=== PATIENT | female | born 1945 | race African-American/Black ===

== ENCOUNTER 2021-03-31 09:38 | Emergency (ER) | payer MEDICAID, OTHER, SELFPAY ==
[2021-03-31 11:30] VITALS: BP 153/69; PULSE 78; RESP 18; TEMP 36.8; O2SAT 96; BMI 26.9
[2021-03-31 12:11] LABS: MANUAL DIFF FLAG NO
[2021-03-31 12:16] LABS: Basophils Absolute Auto 0.1 X10*3/uL (0.0-0.2); Basophils Percent Auto 1.1 % (0-2); Eosinophils Percent Auto 0.2 % (0-4); Hematocrit 40.6 % (37.0-47.0); Hemoglobin 14.4 g/dl (12.0-16.0); Imm Gran Abs Auto 0.03 X10*3/uL (0.00-0.03); Imm Gran Pct Auto 0.3 % (0.0-0.4); Lymphocytes Absolute Auto 3.6 X10*3/uL (1.2-4.9); Lymphocytes Percent Auto 38.6 % (20-40); Mean Corpuscular HGB Conc 35.5 g/dl (31.0-35.0); Mean Corpuscular Hemoglobin 29.6 pg (27.0-33.0); Mean Corpuscular Volume 83.5 fL (80.0-98.0); Mean Platelet Volume 11.6 fL (9.4-12.3); Monocytes Absolute Auto 0.7 X10*3/uL (0.1-1.2); Monocytes Percent Auto 6.9 % (2-11); Neutrophils Percent Auto 52.9 % (45-73); Platelet Count 289 X10*3/uL (160-400); Red Blood Count 4.86 X10*6/uL (4.20-5.50); Red Cell Distribution Width 11.2 % (11.0-16.0); White Blood Count 9.4 X10*3/uL (4.8-10.8)
[2021-03-31 12:37] LABS: Anion Gap 21 (12-20); Blood Urea Nitrogen 26 mg/dL (9-16); Calcium 10.1 mg/dL (8.4-10.2); Carbon Dioxide 26 mmol/L (22-29); Chloride 86 mmol/L (96-108); Estimated Glomerular Filt Rate 39; Glucose Random 487 mg/dL (60-115); Potassium 4.1 mmol/L (3.3-5.1); Sodium 129 mmol/L (135-145)
[2021-03-31 19:38] LABS: Glucose, Whole Blood 362 mg/dL (60-115)
--- NOTE | 2021-03-31 19:41 | ED.GENADULT ---
HPI - General Adult General Chief complaint: General Medical Stated complaint: high BP & blood sugar, mouth & vaginal yeast Time Seen by Provider: 03/31/21 19:41 Source: family Mode of arrival: ambulatory Limitations: no limitations History of Present Illness HPI narrative: patient with weight loss, increased thirst and weakness for 1 week. Patient has been losing weight for 2 weeks. Sores in her mouth. Onset (ago): week(s) Severity: moderate Pain Consistency: constant Associated symptoms: loss of appetite, malaise and other (headache) Related Data Previous Rx's Medication Instructions Recorded metformin 1,000 mg tablet 500 mg PO BID #60 tab 03/31/21 Allergies Allergy/AdvReac Type Severity Reaction Status Date / Time No Known Allergies Allergy Verified 03/31/21 11:30 Review of Systems Constitutional: Constitutional: Reports no additional constitutional complaints Eyes: Eyes: Reports no additional eye complaints ENT: Denies dizziness Cardiovascular: Cardiovascular: Reports no additional cardiovascular complaints Respiratory: Respiratory: Reports as per HPI Gastrointestinal: Gastrointestinal: Reports no additional gastrointestinal complaints Genitourinary: Genitourinary: Reports no additional female genitourinary complaints Musculoskeletal: Musculoskeletal: Reports no additional musculoskeletal complaints Integumentary/Breasts: Skin/Breast: Denies rash Neurologic: Reports system reviewed and no additional complaints, except as documented, Denies dizziness and Denies Sensory deficit (Neuro) Psychiatric: Psychiatric: Denies anxiety PMFSH Past Medical History Medical History GERD (gastroesophageal reflux disease) High blood sugar Hypertension Social History Social History Advance Directives: No Advance Directives Information Provided: Yes Physical Exam Vital Signs: Vital Signs: Last Vital Signs Temp 98.2 F 03/31/21 11:30 Pulse 78 03/31/21 11:30 Resp 18 03/31/21 11:30 BP 153/69 H 03/31/21 11:30 Pulse Ox 96 03/31/21 11:30 BMI result Body Mass Index 26.9 Const: General: healthy appearing Nutritional Appearance: average body habitus Orientation/consciousness: oriented to person and patient oriented x3 Limitations: no limitations HENMT: Head: Yes normal to inspection Ears: external ears normal General nose exam: Normal external nose present Mouth: Normal oral and palatal mucosa present and oropharynx normal Throat: Yes posterior oropharynx normal Eyes: General: appearance normal, both eyes and all related structures Neck: Other: supple Neck: Yes normal visual inspection Chest: Chest palpation & inspection: normal inspection of the chest Resp: Auscultation: clear to auscultation bilaterally Cardio: Jugular venous distension: no JVD Rate: regular rate Rhythm: regular rhythm Heart sounds: S1 normal heart sound present and S2 normal heart sound present GI: Inspection: Yes normal to inspection Palpation (GI): Soft to palpation, nontender and No hepatosplenomegaly present Auscultation: normal bowel sounds : General: Yes no CVA tenderness Back/Spine/Pelvis: Back: no CVA tenderness Skin: General skin exam: no rashes or lesions noted Neuro: General: oriented to person and patient oriented x3 Cranial nerves: Yes CN's II-XII intact bilaterally Motor exam (neuro): 5/5 motor strength present throughout Sensory Exam: No Sensory deficit (Neuro) Extrem: General: Yes normal to inspection Psych: Appearance: grossly normal Course Reevaluation(s) Reevaluation #1: Patient just started hydration and insulin will sign out to Dr. Lovell to check UA and glucose Time: 21:11 Medical Decision Making Lab Data Result diagrams: 03/31/21 12:06 03/31/21 12:06 Labs: Lab Results 03/31/21 03/31/21 03/31/21 Range/Units 12:06 12:06 14:26 WBC 9.4 (4.8-10.8) X10*3/uL RBC 4.86 (4.20-5.50) X10*6/uL Hgb 14.4 (12.0-16.0) g/dl Hct 40.6 (37.0-47.0) % MCV 83.5 (80.0-98.0) fL MCH 29.6 (27.0-33.0) pg MCHC 35.5 H (31.0-35.0) g/dl RDW 11.2 (11.0-16.0) % Plt Count 289 (160-400) X10*3/uL MPV 11.6 (9.4-12.3) fL Immature Gran % (Auto) 0.3 (0.0-0.4) % Neut % (Auto) 52.9 (45-73) % Lymph % (Auto) 38.6 (20-40) % [place] % (Auto) 6.9 (2-11) % Eos % (Auto) 0.2 (0-4) % Baso % (Auto) 1.1 (0-2) % Lymph # (Auto) 3.6 (1.2-4.9) X10*3/uL [place] # (Auto) 0.7 (0.1-1.2) X10*3/uL Eos # (Auto) 0.0 (0.0-0.4) X10*3/uL Baso # (Auto) 0.1 (0.0-0.2) X10*3/uL Abs Immat Gran (auto) 0.03 (0.00-0.03) X10*3/uL Absolute Neuts (auto) 5.0 (2.0-8.3) x10*3/uL Absolute Nucleated RBC 0.000 (0.0-0.012) X10*3/uL Nucleated RBC % (auto) 0.0 (0.0-0.2) /100WBC Sodium 129 L (135-145) mmol/L Potassium 4.1 (3.3-5.1) mmol/L Chloride 86 L (96-108) mmol/L Carbon Dioxide 26 (22-29) mmol/L Anion Gap 21 H (12-20) BUN 26 H (9-16) mg/dL Creatinine 1.32 (0.5-1.4) mg/dL Estim Creat Clear Calc 39.0 Estimated GFR 39 POC Glucose 362 H* (60-115) mg/dL Random Glucose 487 H* (60-115) mg/dL Calcium 10.1 (8.4-10.2) mg/dL Urine Color Urine Appearance Urine pH (5.0-8.0) Ur Specific [place] (1.005-1.025) Urine Protein (NEG-TRACE) MG/DL Urine Glucose (UA) (NEG) MG/DL Urine Ketones (NEG) MG/DL Urine Blood (NEG) Urine Nitrite (NEG) Ur Leukocyte Esterase (NEG) Urine RBC (0) /HPF Urine WBC (0-4) /HPF Ur Squamous Epith Cells /LPF Urine Bacteria /LPF 12/13/21 12/13/21 Range/Units 20:46 20:52 WBC (4.8-10.8) X10*3/uL RBC (4.20-5.50) X10*6/uL Hgb (12.0-16.0) g/dl Hct (37.0-47.0) % MCV (80.0-98.0) fL MCH (27.0-33.0) pg MCHC (31.0-35.0) g/dl RDW (11.0-16.0) % Plt Count (160-400) X10*3/uL MPV (9.4-12.3) fL Immature Gran % (Auto) (0.0-0.4) % Neut % (Auto) (45-73) % Lymph % (Auto) (20-40) % [place] % (Auto) (2-11) % Eos % (Auto) (0-4) % Baso % (Auto) (0-2) % Lymph # (Auto) (1.2-4.9) X10*3/uL [place] # (Auto) (0.1-1.2) X10*3/uL Eos # (Auto) (0.0-0.4) X10*3/uL Baso # (Auto) (0.0-0.2) X10*3/uL Abs Immat Gran (auto) (0.00-0.03) X10*3/uL Absolute Neuts (auto) (2.0-8.3) x10*3/uL Absolute Nucleated RBC (0.0-0.012) X10*3/uL Nucleated RBC % (auto) (0.0-0.2) /100WBC Sodium (135-145) mmol/L Potassium (3.3-5.1) mmol/L Chloride (96-108) mmol/L Carbon Dioxide (22-29) mmol/L Anion Gap (12-20) BUN (9-16) mg/dL Creatinine (0.5-1.4) mg/dL Estim Creat Clear Calc Estimated GFR POC Glucose 460 H* (60-115) mg/dL Random Glucose (60-115) mg/dL Calcium (8.4-10.2) mg/dL Urine Color YELLOW Urine Appearance CLEAR Urine pH 5.5 (5.0-8.0) Ur Specific [place] <= 1.005 (1.005-1.025) Urine Protein NEG (NEG-TRACE) MG/DL Urine Glucose (UA) >=1000 H (NEG) MG/DL Urine Ketones 40 (NEG) MG/DL Urine Blood TRACE (NEG) Urine Nitrite NEG (NEG) Ur Leukocyte Esterase NEG (NEG) Urine RBC 1-4 (0) /HPF Urine WBC 0-2 (0-4) /HPF Ur Squamous Epith Cells 1+ /LPF Urine Bacteria 1+ /LPF Discharge Plan Discharge Clinical Impression: Diabetes, Hyperglycemia Patient Disposition: Still a Patient Instructions: Type 2 Diabetes in Adults: New Diagnosis (ED), Diabetic Hyperglycemia (ED) Prescriptions: New metformin 1,000 mg tablet 500 mg PO BID Qty: 60 RF: 0 Referrals: Christal Vazquez FNP-C [Primary Care Provider] - 1 week
[2021-03-31 20:50] LABS: Glucose, Whole Blood 460 mg/dL (60-115)
[2021-03-31 21:04] LABS: Appearance Urine CLEAR; Color Urine YELLOW; Glucose Urine UA >=1000 MG/DL (NEG); Leukocyte Esterase Urine NEG (NEG); Nitrite Urine NEG (NEG); PH 5.5 (5.0-8.0); Specific Gravity - Urine <= 1.005 (1.005-1.025); UACC Culture Trigger NO; Urine Blood TRACE (NEG); Urine Ketones 40 MG/DL (NEG); Urine Protein NEG (NEG-TRACE)
[2021-03-31 21:14] LABS: WBC Urine 0-2 /HPF (0-4)
[2021-03-31 21:15] LABS: Bacteria Urine 1+ /LPF; Squamous Epithelial Cell Urine 1+ /LPF
[2021-03-31] MEDS: Insulin Lispro 100 UNIT/ML 3 ML VIAL 10 UNIT SUBCUT (21:16)
--- NOTE | 2021-03-31 21:30 | PC.NURSE ---
daughter going home to grab some food and coming back to pick her Mother up for ride home. Repeat bs obtained. aware.
[2021-03-31] MEDS: 0.9 % Sodium Chloride 1,000 ML 999 ML IVCONT ×2 (22:23→23:08)
--- NOTE | 2021-03-31 22:46 | PC.NURSE ---
2nd L of NS UP AND RUNNING W/O DIFFICULTY, SITE INTACT.
[2021-03-31 22:47] VITALS: BP 168/75; PULSE 108; RESP 16; O2SAT 97
[2021-03-31 22:59] LABS: Glucose, Whole Blood 358 mg/dL (60-115)
--- NOTE | 2021-03-31 23:00 | PC.NURSE ---
NS INFUSING. PT REMAINS ALERT, RESPIRATIONS N/L. PT DENIES COMPLAINTS AND WAKES TO VOICE. PT GIVEN WATER TO DRINK.
[2021-04-01 00:22] LABS: Glucose, Whole Blood 270 mg/dL (60-115)
--- NOTE | 2021-04-01 01:29 | PC.NURSE ---
Daughter left ed to go home and get something to eat and did not come back. pt is up for discharge w/o a ride home. IV infused w/o difficulty.
--- NOTE | 2021-04-01 01:57 | PC.NURSE ---
PT HAS A PHONE BUT DOES NOT KNOW HOW TO USE PHONE. [employer] ON [employer] WAS ACTIVATED AND SPOKE SWAHILI TO HER REGARDING HER DAUGHTER LEAVING AND NOT COMING BACK.
--- NOTE | 2021-04-01 03:00 | PC.NURSE ---
PT SITTING UP IN STRETCHER. PT APPEARS TO WANT TO LEAVE, DAUGHTER HAS NOT ARRIVED TO [employer] PT. WILL CONTINUE TO MONITOR PT.
[2021-04-01 04:00] VITALS: BP 154/69; PULSE 99; RESP 18; TEMP 36.7; O2SAT 97
--- NOTE | 2021-04-01 05:00 | PC.NURSE ---
[facility] [employer] CONTACTED AND IS GOING TO [address] [place] [address]. WILL CALL BACK WITH INFORMATION.
--- NOTE | 2021-04-01 05:35 | PC.NURSE ---
[employer] DEPT TO [address] [place] [address] AND WOKE UP SOHEILA (SON). SON IS COMING TO [facility] FROM [place]. PT TO [facility] IN NAD, WITH STEADY EVEN GAIT.
== END 2021-04-01 05:43 | disposition home or self-care (01) ==
PROVIDERS: Emergency Medicine; Emergency Provider Student in an Organized Health Care Education/Training Program; PCP Nurse Practitioner Family
DX: E11.65 Type 2 diabetes mellitus with hyperglycemia (principal); I10 Essential (primary) hypertension; Z79.84 Long term (current) use of oral hypoglycemic drugs
CPT/HCPCS: 36415; 80048; 81001; 81003; 82947; 85025; 96360; 99284